=== PATIENT | female | born 1995 | race Caucasian/White ===

== ENCOUNTER 2023-02-06 14:53 | Emergency (ER) | payer BC, SELFPAY ==
[2023-02-06 14:54] VITALS: BP 129/107; PULSE 119; RESP 16; TEMP 36.6; O2SAT 97
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
[2023-02-06 16:04] VITALS: RESP 18
[2023-02-06] MEDS: morphine 4 mg/mL SDV 1 mL IM (16:04)
--- NOTE | 2023-02-07 08:05 | PC.NURSE ---
Addendum entered by Purvi Ga 02/13/23 12:38: Patient had a follow up appointment scheduled with Dr. Alfonso at ortho - patient did attend appointment. Original Note: Patient seen in the ED and referred to ortho for distal radial/ulnar fracture. [facility] sent message to call pt with an appt.
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
== END 2023-02-06 17:09 | disposition home or self-care (01) ==
PROVIDERS: Emergency Provider Physician Assistant
DX: S80.11XA Contusion of right lower leg, initial encounter (principal); S52.614A Nondisplaced fracture of right ulna styloid process, initial encounter for closed fracture; S52.591A Other fractures of lower end of right radius, initial encounter for closed fracture; V89.2XXA Person injured in unspecified motor-vehicle accident, traffic, initial encounter
CPT/HCPCS: 29125; 73090; 73110; 73562; 73590; 96372; 99284; J2270

== ENCOUNTER 2023-02-08 12:03 | Outpatient (CLI) | payer BC, SELFPAY | END 2023-02-08 12:04 | disposition home or self-care (01) | LOC: SPT 12:04 | PROVIDERS: Visit Provider Specialist | DX: Z46.89 Encounter for fitting and adjustment of other specified devices (principal); S52.591D Other fractures of lower end of right radius, subsequent encounter for closed fracture with routine healing; X58.XXXD Exposure to other specified factors, subsequent encounter | CPT/HCPCS: 97760; L3982 ==

== ENCOUNTER → 2023-02-16 10:53 | Outpatient (BNVA) | payer BC, SELFPAY | PROVIDERS: Visit Provider Nurse Practitioner Family | DX: S52.501A Unspecified fracture of the lower end of right radius, initial encounter for closed fracture (principal); S52.601A Unspecified fracture of lower end of right ulna, initial encounter for closed fracture; W19.XXXA Unspecified fall, initial encounter | CPT/HCPCS: 73110 ==

== ENCOUNTER → 2023-02-26 12:50 | Outpatient (BNVA) | payer BC, SELFPAY | PROVIDERS: Visit Provider Specialist | DX: S52.501D Unspecified fracture of the lower end of right radius, subsequent encounter for closed fracture with routine healing (principal); S52.601D Unspecified fracture of lower end of right ulna, subsequent encounter for closed fracture with routine healing; X58.XXXD Exposure to other specified factors, subsequent encounter | CPT/HCPCS: 73110 ==

== ENCOUNTER → 2023-03-26 12:54 | Outpatient (BNVA) | payer BC, SELFPAY | PROVIDERS: Visit Provider Specialist | DX: S52.501G Unspecified fracture of the lower end of right radius, subsequent encounter for closed fracture with delayed healing (principal); S52.601G Unspecified fracture of lower end of right ulna, subsequent encounter for closed fracture with delayed healing; V49.50XD Passenger injured in collision with unspecified motor vehicles in traffic accident, subsequent encounter | CPT/HCPCS: 73110 ==

== ENCOUNTER → 2023-04-23 13:36 | Outpatient (BNVA) | payer SELFPAY | PROVIDERS: Visit Provider Specialist | DX: S52.501G Unspecified fracture of the lower end of right radius, subsequent encounter for closed fracture with delayed healing; S52.601G Unspecified fracture of lower end of right ulna, subsequent encounter for closed fracture with delayed healing; X58.XXXD Exposure to other specified factors, subsequent encounter | CPT/HCPCS: 73110 ==